=== PATIENT | male | born 1990 | race American Indian/Alaskan Native ===

== ENCOUNTER → 2025-02-08 | Outpatient (CLI) | payer MEDICAID, SELFPAY ==
--- NOTE | 2025-02-08 09:04 | XR_ITS ---
EXAMINATION: PA lateral chest 2 views TECHNIQUE: Upright PA lateral chest 2 views Date and time: February 08, 2025, 0914 hours INDICATIONS: Tuberculosis screening FINDINGS: Normal heart size Lungs are clear. The osseous structures are intact IMPRESSION: No active disease No radiographic findings of active tuberculosis
== END | disposition home or self-care (01) ==
LOC: CDIM 08:45
PROVIDERS: PCP Nurse Practitioner Family; Referring Provider Nurse Practitioner Family; Visit Provider Nurse Practitioner Family
DX: Z11.1 Encounter for screening for respiratory tuberculosis (principal); Z92.89 Personal history of other medical treatment
CPT/HCPCS: 71046